=== PATIENT | female | born 1965 ===

== ENCOUNTER 2023-08-30 09:53 | Outpatient (AMB) | payer OTHER, SELFPAY ==
[2023-08-30 09:54] VITALS: BP 137/68; PULSE 72; RESP 14; TEMP 36.7; O2SAT 98; BMI 24.7
--- NOTE | 2023-08-30 09:54 | MHC.OFFWIV ---
Intake Vital Signs 08/30/23 09:54 Height 5 ft 2 in Weight 135 lb BMI 24.7 BP 137/68 Blood Pressure Location Rt brachial Position Sitting Respiration 14 Pulse 72 Pulse Source Pulse Oximeter Temp 98.1 F Temp Source Temporal Artery Scan Pulse Oximetry (%) 98 Oxygen Delivery Method Room Air Intake Visit Reasons: cold symptoms, congestion Intake Note: Patient reports cough and cold symptoms x2 weeks with a lingering cough. Patient reports she tested negative at home for covid and has been exposed to RSV through a relative. Patient Tobacco Use Status: Current everyday Tobacco user [employer] Required: No Accompanied by: Self / Same As Patient Allergies No Known Allergies Allergy (Verified 08/30/23 10:11) Medication List - Last Reconciled 08/30/23 by VALENTIN Becerra No Known Home Meds Do you need a note to return to daycare/school/sports/work: No HPI HPI Comments History of Present Illness Details cold like sx for weeks exposed to grandkid w RSV using dayquil in the last 3 days developed chest congestion; + ear pain + sinus congestion + headache home covid test negative denies fever, chills, sore throat. PFSH Social History Patient Tobacco Use Status: Current everyday Tobacco user Review of Systems Const All systems reviewed & are unremarkable except as noted in HPI and below Physical Exam Vital Signs: Last Vital Signs Temp 98.1 F 08/30/23 09:54 Pulse 72 08/30/23 09:54 Resp 14 08/30/23 09:54 BP 137/68 08/30/23 09:54 Pulse Ox 98 08/30/23 09:54 Oxygen Delivery Method Room Air 08/30/23 09:54 BMI result Body Mass Index 24.7 Const Other: Awake alert NAD Sclera and conjunctiva clear bilat TM intact mucoid effusions bilat, R with mild injections nares w/ mucoud d/c, turbinates pale and edematous, + frontal and max sinus tenderness w/ palp MMM, pharynx WNL RRR LS CTAB , dry cough noted during exam w/o distress Assessment & Plan Assessment & Plan (1) Acute bacterial sinusitis: Code(s): J01.90 - Acute sinusitis, unspecified; B96.89 - Other specified bacterial agents as the cause of diseases classified elsewhere Plan: . Plan . Medications: New amoxicillin-pot clavulanate 875-125 mg 1 tab PO BID 14 tabs 0RF 7 days Patient Instructions: take ab with food complete therapy no nasal sprays other than flonase or nasal saline Coding Level of Care Code Est Pt Level 3 (82188) Diagnoses Acute bacterial sinusitis J01.90; B96.89
== END 2023-08-30 10:43 | disposition home or self-care (01) ==
PROVIDERS: Visit Provider Nurse Practitioner Family
DX: J01.90 Acute sinusitis, unspecified (principal); B96.89 Other specified bacterial agents as the cause of diseases classified elsewhere
CPT/HCPCS: 99213